=== PATIENT | male | born 1995 | race Caucasian/White ===

== ENCOUNTER 2018-09-02 13:06 | Day surgery (SDC) | payer OTHER ==
[2018-09-02 13:27] LABS: BILIRUBIN,URINE NEGATIVE (NEGATIVE); GLUCOSE, URINE (UA) NEGATIVE (NEGATIVE); KETONES,URINE (UA) NEGATIVE (NEGATIVE); LEUKOCYTE ESTERASE, URINE NEGATIVE (NEGATIVE); NITRITE,URINE NEGATIVE (NEGATIVE); OCCULT BLOOD,URINE NEGATIVE (NEGATIVE); PH,URINE 6.5 PH (5.0-7.5); PROTEIN,URINE NEGATIVE (NEGATIVE); UROBILINOGEN,URINE 0.2 (NORMAL) E.U./dL (NORMAL)
[2018-09-02 13:28] LABS: CLARITY,URINE CLEAR (CLEAR)
[2018-09-02 13:37] LABS: BASOPHILS % (AUTO) 0.6 %; EOSINOPHILS # (AUTO) 0.1 10^3/uL (0.0-0.7); HGB - HEMOGLOBIN 14.8 g/dL (14.0-18.0); LYMPHOCYTES # (AUTO) 1.8 10^3/uL (1.5-3.5); LYMPHOCYTES % (AUTO) 25.9 %; MEAN CORPUSCULAR HEMOGLOBIN 28.9 pg (27.0-31.0); MEAN CORPUSCULAR HGB CONC 34.3 g/dL (32.0-36.0); MEAN CORPUSCULAR VOLUME 84.3 fL (80.0-94.0); MEAN PLATELET VOLUME 8.6 fL (7.4-11.4); MONOCYTES # (AUTO) 0.7 10^3/uL (0.0-1.0); MONOCYTES % (AUTO) 10.8 %; NEUTROPHILS # (AUTO) 4.2 10^3/uL (1.5-6.6); NEUTROPHILS % (AUTO) 60.7 %; PLT - PLATELET COUNT 263 10^3/uL (130-450); RED BLOOD COUNT 5.14 10^6/uL (4.70-6.10); RED CELL DISTRIBUTION WIDTH 13.1 % (12.0-15.0); WHITE BLOOD COUNT 6.8 x10^3/uL (4.8-10.8)
[2018-09-02 13:49] LABS: ALBUMIN 4.4 g/dL (3.2-5.5); ALBUMIN/GLOBULIN RATIO 1.4 (1.0-2.2); BILIRUBIN,TOTAL 0.4 mg/dL (0.2-1.0); CALCIUM 8.9 mg/dL (8.5-10.3); TOTAL PROTEIN 7.6 g/dL (6.7-8.2)
--- NOTE | 2018-09-02 14:33 | ED Physician Documentation ---
PD HPI ABD PAIN - Stated complaint Stated Complaint: ABD PX/NAUSEA - Chief complaint Chief Complaint: Abd Pain - History obtained from History obtained from: Patient, Family - History of Present Illness Timing - onset: Yesterday Timing - duration: Days (2) Timing - details: Gradual onset Pain level max: 7 Pain level now: 6 Quality: Aching, Pain Location: RLQ Improved by: Laying still Worsened by: Moving, Palpation Associated symptoms: Nausea. No: Fever, Vomiting, Hematemesis, Diarrhea, Constipation, Melena, Hematochezia Similar symptoms before: Has not had sx before Recently seen: Not recently seen - Additional information Additional information: 23-year-old male started with generalized abdominal pain yesterday which is now settled in the right lower quadrant today. Worse with standing up, walking or going over bumps in the car. Patient ate cereal at 8 AM this morning. Review of Systems Ten Systems: 10 systems reviewed and negative Constitutional: denies: Fever, Chills Throat: denies: Sore throat Respiratory: denies: Cough, Wheezing : denies: Dysuria, Frequency, Hesitancy, Hematuria Skin: denies: Rash Musculoskeletal: denies: Neck pain, Back pain Neurologic: denies: Headache PD PAST MEDICAL HISTORY - Past Medical History Past Medical History: No - Past Surgical History Past Surgical History: No - Present Medications Home Medications: Ambulatory Orders Medication Instructions Recorded Confirmed No Known Home Medications 09/02/18 09/02/18 - Allergies Allergies/Adverse Reactions: Allergies Allergy/AdvReac Type Severity Reaction Status Date / Time No Known Drug Allergies Allergy Verified 09/02/18 13:12 - Social History Does the pt smoke?: No Smoking Status: Never smoker Does the pt drink ETOH?: No Does the pt have substance abuse?: No - Immunizations Immunizations are current?: Yes - POLST Patient has POLST: No PD ED PE NORMAL - Vitals Vital signs reviewed: Yes - General General: Alert and oriented X 3, No acute distress - HEENT HEENT: Moist mucous membranes - Neck Neck: Supple, no meningeal sign - Cardiac Cardiac: RRR - Respiratory Respiratory: No respiratory distress, Clear bilaterally - Abdomen Abdomen: Soft, Other (Tender palpation right lower quadrant at McBurney's point. No peritoneal signs. ) - Back Back: No CVA TTP, No spinal TTP - Derm Derm: Warm and dry - Extremities Extremities: Normal ROM s pain, No edema - Neuro Neuro: Alert and oriented X 3 - Psych Psych: Normal mood, Normal affect Results - Vitals Vitals: Vital Signs - 24 hr 09/02/18 13:08 Temperature 36.1 C L Heart Rate 64 Respiratory 16 Rate Blood Pressure 156/82 H O2 Saturation 100 Oxygen O2 Source Room air - Labs Labs: Laboratory Tests 09/02/18 09/02/18 09/02/18 13:13 13:32 13:32 WBC 6.8 RBC 5.14 Hgb 14.8 Hct 43.3 MCV 84.3 MCH 28.9 MCHC 34.3 RDW 13.1 Plt Count 263 MPV 8.6 Neut # (Auto) 4.2 Lymph # (Auto) 1.8 [place] # (Auto) 0.7 Eos # (Auto) 0.1 Baso # (Auto) 0.0 Absolute Nucleated RBC 0.00 Nucleated RBC % 0.0 Sodium 139 Potassium 3.6 Chloride 106 Carbon Dioxide 26 Anion Gap 7.0 BUN 18 Creatinine 1.0 Estimated GFR (MDRD) 91 Glucose 92 Calcium 8.9 Total Bilirubin 0.4 AST 22 ALT 26 Alkaline Phosphatase 70 Total Protein 7.6 Albumin 4.4 Globulin 3.2 Albumin/Globulin Ratio 1.4 Lipase 23 Urine Color YELLOW Urine Clarity CLEAR Urine pH 6.5 Ur Specific [place] 1.010 Urine Protein NEGATIVE Urine Glucose (UA) NEGATIVE Urine Ketones NEGATIVE Urine Occult Blood NEGATIVE Urine Nitrite NEGATIVE Urine Bilirubin NEGATIVE Urine Urobilinogen 0.2 (NORMAL) Ur Leukocyte Esterase NEGATIVE Ur Microscopic Review NOT INDICATED Urine Culture Comments NOT INDICATED PD MEDICAL DECISION MAKING - ED course Complexity details: reviewed results, re-evaluated patient, considered differential, d/w patient ED course: 23-year-old male presents to the emergency department what appears to be appendicitis clinically. Discussed the case with Dr. Levy, surgeon on- call who came and evaluated the patient will take to the operating room. This document was made in part using voice recognition software. While efforts are made to proofread this document, sound alike and grammatical errors may occur. Departure - Departure Disposition: ED Transfer to [facility] Clinical Impression: Appendicitis Qualifiers: Appendicitis type: acute appendicitis Acute appendicitis type: unspecified acute appendicitis type Qualified Code(s): K35.80 - Unspecified acute appendicitis Condition: Stable
[2018-09-02] MEDS ORDERED: BUPIVACAINE 0.5% PF 30 ML VIAL ONE (15:02)
[2018-09-02] MEDS ORDERED: cefOXitin 2 GM in SODIUM CHLORIDE 0.9% MINIBAG 100 ML IV STA (15:08)
--- NOTE | 2018-09-02 15:26 | ANESTHESIA ---
Pre-Anesthesia VS, & Labs - Diagnosis acute appendicitis - Procedure Laprascopic appendectomy Vital Signs: Temp Pulse Resp BP Pulse Ox 36.1 C L 64 16 156/82 H 100 09/02/18 13:08 09/02/18 13:08 09/02/18 13:08 09/02/18 13:08 09/02/18 13:08 Height 5 ft 11 in Weight (kg) 99.79 kg Body Mass Index 30.7 - NPO Last Fluid Intake: 1200 Last Food Intake: 829 - Lab Results Current Lab Results: Laboratory Tests 09/02/18 13:32: Sodium 139, Potassium 3.6, Chloride 106, Carbon Dioxide 26, Anion Gap 7.0, BUN 18, Creatinine 1.0, Estimated GFR (MDRD) 91, Glucose 92, Calcium 8.9, Total Bilirubin 0.4, AST 22, ALT 26, Alkaline Phosphatase 70, Total Protein 7.6, Albumin 4.4, Globulin 3.2, Albumin/Globulin Ratio 1.4, Lipase 23 09/02/18 13:32: WBC 6.8, RBC 5.14, Hgb 14.8, Hct 43.3, MCV 84.3, MCH 28.9, MCHC 34.3, RDW 13.1, Plt Count 263, MPV 8.6, Neut # (Auto) 4.2, Lymph # (Auto) 1.8, [place] # (Auto) 0.7, Eos # (Auto) 0.1, Baso # (Auto) 0.0, Absolute Nucleated RBC 0.00, Nucleated RBC % 0.0 Fish Bones: 09/02/18 13:32 09/02/18 13:32 Home Medications and Allergies Home Medications: Ambulatory Orders Ibuprofen 200 mg PO Q8HR PRN 09/02/18 Active Medications Cefoxitin Sodium 2 gm/ Sodium (Chloride) 100 mls @ 100 mls/hr IV ONCE STA Stop: 09/02/18 16:07 Last Admin: 09/02/18 15:15 Dose: Not Given Ibuprofen 200 mg PO Q8HR PRN 09/02/18 Allergies/Adverse Reactions: Allergies Allergy/AdvReac Type Severity Reaction Status Date / Time No Known Drug Allergies Allergy Verified 09/02/18 13:12 Anes History & Medical History - Anesthetic History Family history of Anesthesia Complications: Denies Family history of Malignant Hyperthermia: Denies - Medical History Cardiovascular: reports: None Pulmonary: reports: None Gastrointestinal: reports: GERD (occassionally) Urinary: reports: None Neuro: reports: None Musculoskeletal: reports: None Endocrine/Autoimmune: reports: None Blood Disorders: reports: None Skin: reports: None Smoking Status: Never smoker Exam General: Alert, Oriented x3, Cooperative, No acute distress Mouth Openin Fingerbreadth Neck Mobility: Normal Mallampati classification: II Thyromental Distance: 4-6 cm Respiratory: Lungs clear, Normal breath sounds, No respiratory distress, No accessory muscle use Cardiovascular: Regular rate, Normal S1, Normal S2, No murmurs Mental/Cognitive Status: Alert/Oriented X3, Normal for patient Plan Anesthesia Type: General Consent for Procedure(s) Verified and Reviewed: Yes Code Status: Attempt Resuscitation ASA classification: 2-Mild systemic disease Is this case an emergency?: Yes
[2018-09-02] MEDS ORDERED: IOVERSOL 320 100 ML VIAL IVP ONE (15:27)
[2018-09-02] MEDS ORDERED: BUPIVACAINE 0.5% PF 30 ML VIAL INFIL ONE ×2 (15:57)
[2018-09-02] MEDS ORDERED: LACTATED RINGERS 1,000 ML IV ONE ×2 (15:58→16:20)
[2018-09-02] MEDS ORDERED: HYDROcod/ACETAM 5/325 MG TABLET PO PRN (16:42)
[2018-09-02] MEDS ORDERED: NEOSTIGMINE 1 MG/1 ML 10 ML MDV IVP ONE (16:44)
[2018-09-02] MEDS ORDERED: ROCURONIUM 50 MG/5 ML VIAL IVP ONE (16:44)
[2018-09-02] MEDS ORDERED: GLYCOPYRROLATE 1 MG/5 ML VIAL IVP ONE (16:44)
[2018-09-02] MEDS ORDERED: KETOROLAC 30 MG/ML VIAL IVP ONE (16:44)
[2018-09-02] MEDS ORDERED: MIDAZOLAM 2 MG/2 ML VIAL IVP ONE (16:44)
[2018-09-02] MEDS ORDERED: PROPOFOL 200 MG/20 ML VIAL IVP ONE (16:44)
[2018-09-02] MEDS ORDERED: ONDANSETRON 4 MG/2 ML VIAL IVP ONE (16:44)
[2018-09-02] MEDS ORDERED: HYDROmorphone 1 MG/ML CARPUJECT IVP ONE (16:44)
[2018-09-02] MEDS ORDERED: fentaNYL 100 MCG/2 ML VIAL IVP ONE (16:44)
--- NOTE | 2018-09-02 16:44 | IMMEDIATE POSTOPERATIVE NOTE ---
Immediate Postoperative Note - Procedure Note Procedure Date: 09/02/18 Pre-Op Diagnosis: appendicitis Procedure: lap appy Post-Op Diagnosis: same Primary Surgeon: zakiya Anesthesia Type: General ET tube Complications: No complications Estimated Blood Loss (in cc): 10 Specimens and Cultures: appendix Plan of Care: d/c
[2018-09-02] MEDS: HYDROmorphone 0.5 MG/0.5 ML SYRINGE ONE ×2 (16:57→17:19)
[2018-09-02] MEDS ORDERED: HYDROmorphone 0.5 MG/0.5 ML SYRINGE ONE (17:22)
[2018-09-02] MEDS ORDERED: HYDROcod/ACETAM 5/325 MG TABLET ONE (17:22)
[2018-09-02 17:59] VITALS: BP 139/54
--- NOTE | 2018-09-03 01:21 | OPERATIVE REPORT ---
DATE OF SERVICE: 09/02/2018 Physician: Edwar Levy MD PREOPERATIVE DIAGNOSIS: Acute appendicitis. POSTOPERATIVE DIAGNOSIS: Acute appendicitis. PROCEDURE PERFORMED: Laparoscopic appendectomy. INDICATIONS FOR PROCEDURE: The patient is a 23-year-old man who presented to the ER complaining of one day of generalized to right lower quadrant pain and nausea. Due to the classic nature of his symptoms, we elected to bypass the CT scan and go straight to the operating room. The patient was in agreement with this plan. PROCEDURE IN DETAIL: The risks and benefits were explained to the patient and he agreed to the procedure. He was taken to the operating room and placed under general anesthesia and intubated and was prepped and draped. A timeout was performed. Everyone in the room agreed to the procedure. We began by making a 12 mm supraumbilical incision and carried this down into the peritoneal cavity, inserted a Dominga trocar and secured it in place. We then insufflated the abdomen to 15 mmHg. On general inspection of the abdomen, we noted slight ileus of the bowel around the appendix. The appendix had a very mild inflammation in its proximal half. The cecum and ascending colon had numerous adhesions to the anterior abdominal wall. They looked to be old and chronic in nature, possibly congenital. In any event, the appendix was not involved with these adhesions. We elected to leave them alone. We then inserted two more 5 mm trocars, one above the pubic symphysis and one in the left lower quadrant under direct vision from the camera. We then created a window between the appendiceal body and the mesoappendix at the base of the appendix. Using the blue load of the GI stapler, we transected the appendix at its base; and then using the white load, we transected the mesoappendix. The appendix was then placed in an EndoCatch bag and sent to pathology. The right lower quadrant was lavaged and suctioned dry. The staple lines were inspected and found to have no residual bleeding. All three ports were removed under vision from the camera. The fascia of the umbilical port site was closed using 0 Vicryl stitch. The skin over all three incisions was closed using 4-0 Monocryl and Dermabond. This terminated the procedure. The patient tolerated it well. He was extubated in the operating room and taken to recovery in stable condition; 10 mL of Marcaine was infused in the incisions prior to closure. ESTIMATED BLOOD LOSS: 10 mL. SPECIMEN: Appendix. COMPLICATIONS: None. PLAN: The plan is for this patient to go home later today. TD: 09/02/2018 16:47 MTDD
== END 2018-09-02 15:01 | disposition home or self-care (01) ==
LOC: ED 13:06 → SDS 15:00
PROVIDERS: ATTEND Surgery
PROC: 0DTJ4ZZ Resection of Appendix, Percutaneous Endoscopic Approach (ICD-10-PCS; principal; 2018-09-02 15:30)
DX: K35.80 Unspecified acute appendicitis (principal)
CPT/HCPCS: 36415; 44970; 80053; 81003; 83690; 85025; 99283; 99285; A9270; J1170; J7120; 81001; 87086

== ENCOUNTER 2022-05-25 12:45 | Outpatient (CLI) | payer OTHER ==
--- NOTE | 2022-05-25 15:06 | MRI Report ---
PROCEDURE: Shoulder RT W/O INDICATIONS: TECHNIQUE: Noncontrast oblique coronal T2 fast spin echo with fat saturation, oblique sagittal T1 spin echo and T2 fast spin echo with fat saturation, axial T1 spin echo and T2 fast spin echo with fat saturation t hrough the shoulder. COMPARISON: Bilateral shoulder radiographs 04/16/2022. FINDINGS: Image quality: Excellent. Rotator cuff: There is mild to moderate supraspinatus tendinosis and infraspinatus tendinosis. The t eres minor tendon is intact. There is moderate tendinosis and focal moderate grade partial intrasubst ance tearing of the subscapularis tendon at the superior insertion. No significant rotator cuff muscl e atrophy. Bones and bursae: No acute trabecular bone injury or fracture. Chronic traction cystic changes are s een at the posterosuperior humeral head near the rotator cuff tendon insertions. Glenohumeral articul ar cartilages are grossly maintained. Mild degenerative changes of the acromioclavicular joint. No si gnificant subacromial/subdeltoid bursal fluid. No significant glenohumeral joint effusion. Capsule and soft tissues: No displaced labral tear. The proximal biceps long head tendon is grossly intact. There is partial effacement of the normal fat signal in the rotator interval. The middle caryl ohumeral ligament and anterior band of the inferior glenohumeral ligament appear thickened. IMPRESSION: 1.Focal moderate grade partial intrasubstance tearing of the subscapularis tendon at the superior ins ertion superimposed on chronic tendinosis. 2.Mild to moderate supraspinatus and infraspinatus tendinosis. 3.Mild degenerative changes at the acromioclavicular joint. 4.Partial effacement of the rotator interval fat and mild thickening of the inferior glenohumeral lig ament are nonspecific, but can be seen in the setting of the clinical syndrome of adhesive capsulitis . Reviewed by: Ozzy Koch MD on 05/25/2022 3:05 PM PDT Approved by: Ozzy Koch MD on 05/25/2022 3:05 PM PDT Station ID: [id number]
--- NOTE | 2022-05-25 15:07 | MRI Report ---
PROCEDURE: Shoulder LT W/O INDICATIONS: BILATERAL SHOULDER PAIN TECHNIQUE: Noncontrast oblique coronal T2 fast spin echo with fat saturation, oblique sagittal T1 spin echo and T2 fast spin echo with fat saturation, axial T1 spin echo and T2 fast spin echo with fat saturation a nd 3-D gradient echo through the shoulder. COMPARISON: Bilateral shoulder radiographs 04/16/2022 FINDINGS: Image quality: Excellent. Rotator cuff: Mild supraspinatus tendinosis with low-grade bursal surface fraying. The infraspinatus and teres minor tendons are intact. The subscapularis tendon demonstrates tendinosis and low-grade i ntrasubstance tearing at the superior insertion. There is no significant rotator cuff muscle atrophy. Bones and bursae: No acute trabecular bone injury or fracture. Chronic traction cystic changes are se en in the posterosuperior humeral head. No glenohumeral cartilage defect identified. Mild acromioclav icular osteoarthrosis with mild subchondral cystic changes. No significant subacromial/subdeltoid bur jesus fluid. No significant glenohumeral joint effusion. Capsule and soft tissues: No displaced labral tear. The proximal biceps long head tendon demonstrate mild tendinosis. There is partial effacement of the normal fat signal in the rotator normal. The ant erior band of the inferior glenohumeral ligament and the middle glenohumeral ligament appear mildly t hickened. IMPRESSION: 1.Mild to moderate subscapularis tendinosis with superimposed low-grade intrasubstance tearing at the superior insertion. 2.Mild tendinosis of the supraspinatus tendon with low-grade bursal surface fraying without a discret e tear. 3.Mild tendinosis of the proximal biceps long head tendon. 4.Mild acromioclavicular osteoarthrosis. 5.Partial effacement of the rotator interval fat and mild thickening of the middle and inferior gleno humeral ligaments are nonspecific, but can be seen in the setting of the clinical syndrome of adhesiv e capsulitis. Reviewed by: Ozzy Koch MD on 05/25/2022 3:05 PM PDT Approved by: Ozzy Koch MD on 05/25/2022 3:05 PM PDT Station ID: [id number]
== END 2022-05-25 12:46 | disposition home or self-care (01) ==
LOC: DI 12:45
PROVIDERS: ATTEND Registered Nurse
DX: M75.111 Incomplete rotator cuff tear or rupture of right shoulder, not specified as traumatic (principal); M19.011 Primary osteoarthritis, right shoulder; M75.112 Incomplete rotator cuff tear or rupture of left shoulder, not specified as traumatic; M19.012 Primary osteoarthritis, left shoulder; M75.82 Other shoulder lesions, left shoulder

== ENCOUNTER 2022-06-16 08:00 | Outpatient (CLI) | payer OTHER ==
--- NOTE | 2022-06-16 17:20 | XRAY Report ---
PROCEDURE: Shoulder 2 View BILAT INDICATIONS: BILAT SHOULDER PX, Y AXIAL VIEW TECHNIQUE: 2 views of each shoulder were acquired. COMPARISON: None. FINDINGS: Bones: No visible fractures or dislocations. No suspicious bony lesions. Visualized ribs appear in tact. Soft tissues: No suspicious soft tissue calcifications. IMPRESSION: Normal axillary and Y views of each shoulder. Reviewed by: Antonette Hummel MD on 06/16/2022 5:18 PM PDT Approved by: Antonette Hummel MD on 06/16/2022 5:18 PM PDT Station ID: [id number]
== END 2022-06-16 23:59 | disposition home or self-care (01) ==
LOC: DI.WOS 08:00
PROVIDERS: ATTEND Physician Assistant Surgical
DX: M25.511 Pain in right shoulder (principal); M25.512 Pain in left shoulder

== ENCOUNTER 2023-02-17 07:33 | Outpatient (CLI) | payer OTHER ==
[2023-02-17 12:12] LABS: BASOPHILS # (AUTO) 0.1 10^3/uL (0.0-0.1); BASOPHILS % (AUTO) 1.2 %; EOSINOPHILS # (AUTO) 0.4 10^3/uL (0.0-0.7); EOSINOPHILS % (AUTO) 7.2 %; HGB - HEMOGLOBIN 14.8 g/dL (14.0-18.0); LYMPHOCYTES # (AUTO) 1.9 10^3/uL (1.5-3.5); LYMPHOCYTES % (AUTO) 32.6 %; MEAN CORPUSCULAR HEMOGLOBIN 27.8 pg (27.0-31.0); MEAN CORPUSCULAR HGB CONC 32.9 g/dL (32.0-36.0); MEAN CORPUSCULAR VOLUME 84.6 fL (80.0-94.0); MEAN PLATELET VOLUME 13.5 fL (7.4-11.4); MONOCYTES # (AUTO) 0.5 10^3/uL (0.0-1.0); MONOCYTES % (AUTO) 9.5 %; NEUTROPHILS # (AUTO) 2.8 10^3/uL (1.5-6.6); NEUTROPHILS % (AUTO) 49.3 %; PLT - PLATELET COUNT 305 10^3/uL (130-450); RED BLOOD COUNT 5.32 10^6/uL (4.70-6.10); RED CELL DISTRIBUTION WIDTH 12.3 % (12.0-15.0); WHITE BLOOD COUNT 5.7 x10^3/uL (4.8-10.8)
[2023-02-17 12:22] LABS: BILIRUBIN,URINE NEGATIVE (NEGATIVE); GLUCOSE, URINE (UA) NEGATIVE (NEGATIVE); KETONES,URINE (UA) NEGATIVE (NEGATIVE); LEUKOCYTE ESTERASE, URINE NEGATIVE (NEGATIVE); NITRITE,URINE NEGATIVE (NEGATIVE); OCCULT BLOOD,URINE NEGATIVE (NEGATIVE); PH,URINE 6.5 PH (5.0-7.5); PROTEIN,URINE NEGATIVE (NEGATIVE); UROBILINOGEN,URINE 0.2 (NORMAL) E.U./dL (NORMAL)
[2023-02-17 12:31] LABS: BACTERIA,URINE None Seen /HPF (None Seen); CLARITY,URINE CLEAR (CLEAR); RBC,URINE 0-5 /HPF (0-5); SQUAMOUS EPITHELIAL CELL,UR RARE Squamous (<= Few); WBC,URINE 0-3 /HPF (0-3)
[2023-02-17 12:49] LABS: ALBUMIN/GLOBULIN RATIO 1.3 (1.0-2.2); ALKALINE PHOSPHATASE 58 IU/L (42-121); ALT ALANINE AMINOTRANSFERASE 27 IU/L (10-60); AST ASPARTATE AMINOTRANSFERASE 17 IU/L (10-42); BILIRUBIN,TOTAL 0.6 mg/dL (0.2-1.0); BUN - BLOOD UREA NITROGEN 18 mg/dL (6-20); CALCIUM 8.9 mg/dL (8.5-10.3); CARBON DIOXIDE - CO2 29 mmol/L (21-32); CHLORIDE 109 mmol/L (101-111); CHOL/HDL RATIO 3.5 (<5.0); CHOLESTEROL 147 mg/dL; CREATININE 1.2 mg/dL (0.6-1.2); GFR - MDRD 72 (>89); GLUCOSE 95 mg/dL (70-100); HDL CHOLESTEROL 42 mg/dL; LDL CHOLESTEROL,CALCULATED 92 mg/dL; LDL/HDL RATIO 2.2 (<3.6); POTASSIUM 4.4 mmol/L (3.5-5.0); SODIUM 142 mmol/L (135-145); THYROID STIMULATING HORMONE 1.32 uIU/mL (0.34-5.60); TRIGLYCERIDES 64 mg/dL; VLDL CHOLESTEROL 13 mg/dL
== END 2023-02-17 07:34 | disposition home or self-care (01) ==
LOC: LAB.N 07:33
PROVIDERS: ATTEND Physician Assistant
DX: R35.0 Frequency of micturition (principal); Z13.9 Encounter for screening, unspecified
CPT/HCPCS: 36415; 80053; 80061; 81001; 83721; 84153; 84443; 85025; 87086

== ENCOUNTER 2024-01-06 18:13 | Emergency (ER) | payer OTHER ==
[2024-01-06 18:33] VITALS: O2SAT 97
[2024-01-06] MEDS: BACITRACIN ZINC OINT 1 PACKET TOP STA (18:55)
--- NOTE | 2024-01-06 19:05 | ED Physician Documentation ---
History of Present Illness - Stated complaint Stated Complaint: FALL - Chief complaint Chief Complaint: Trauma Ext - History obtained from History obtained from: Patient - History of Present Illness Timing: Today Pain level max: 5 Pain level now: 4 - Additonal information Additional information: 28-year-old male, works as a real estate job titles, today he fell scraping his bilateral knees and left forearm. Complains of left forearm pain. Worse with movement, better with rest. Patient is left-handed. No head injury, no neck or back pain. No chest pain. No abdominal pain. Not on blood thinners. Tetanus is up-to-date. No other injuries. PD PAST MEDICAL HISTORY - Past Medical History Past Medical History: No Cardiovascular: None Respiratory: None Neuro: None Endocrine/Autoimmune: None GI: GERD : None Psych: None Musculoskeletal: None Derm: None - Past Surgical History Past Surgical History: Yes General: Appendectomy - Present Medications Home Medications: Ambulatory Orders Medication Instructions Recorded Confirmed No Known Home Medications 01/06/24 01/06/24 - Allergies Allergies/Adverse Reactions: Allergies Allergy/AdvReac Type Severity Reaction Status Date / Time No Known Drug Allergies Allergy Verified 01/06/24 18:27 - Social History Does the pt smoke?: No Smoking Status: Never smoker Does the pt drink ETOH?: No Does the pt have substance abuse?: No - Immunizations Immunizations are current?: Yes - POLST Patient has POLST: No PD ED PE NORMAL - Vitals Vital signs reviewed: Yes - General General: Alert and oriented X 3, No acute distress - HEENT HEENT: Moist mucous membranes - Neck Neck: Supple, no meningeal sign - Cardiac Cardiac: RRR, Strong equal pulses - Respiratory Respiratory: No respiratory distress, Clear bilaterally - Abdomen Abdomen: Soft, Non tender, Non distended - Derm Derm: Warm and dry - Extremities Extremities: Other (abrasions to the B knees and L forearm/elbow. TTP along the L forearm. FROM of all major joints without pain. 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 Abrasions were cleansed and bandaged. Warnings of infection and instructions on wound care given at bedside. Patient counseled regarding signs and symptoms for which I believe and urgent re-evaluation would be necessary. Patient with good understanding of and agreement to plan and is comfortable going home at this time This document was made in part using voice recognition software. While efforts are made to proofread this document, sound alike and grammatical errors may occur. L&[id number] Departure - Departure Disposition: 01 Home, Self Care Clinical Impression: Abrasions of multiple sites Forearm contusion Qualifiers: Encounter type: initial encounter Laterality: left Qualified Code(s): S50.12XA - Contusion of left forearm, initial encounter Condition: Good Instructions: ED Abrasion, ED Contusion Upper Ext Follow-Up: your,doctor as needed [Other] Comments: Keep your wounds clean. Return for redness, swelling or drainage from the wound. Your x-ray does not show any acute abnormalities today. You can use Motrin or Tylenol as needed for pain. Please return if you worsen. Forms: PCP List Discharge Date/Time: 01/06/24 19:21
[2024-01-06 19:30] VITALS: BP 135/93
--- NOTE | 2024-01-07 00:29 | XRAY Report ---
PROCEDURE: Forearm LT INDICATIONS: fall, arm pain TECHNIQUE: 2 views of the forearm were acquired. COMPARISON: None. FINDINGS: Bones: No fractures or dislocations. No suspicious bony lesions. Soft tissues: No suspicious soft tissue calcifications or masses. IMPRESSION: No visualized acute fracture or dislocation. However, occult injury cannot be excluded. Recommend west rt interval imaging follow-up in 7-10 days as clinically indicated for additional evaluation. The above findings are concordant with preliminary report. Reviewed by: Marcy Rehman MD on 01/07/2024 12:27 AM PDT Approved by: Marcy Rehman MD on 01/07/2024 12:27 AM PDT Station ID: [id number]
== END 2024-01-06 19:21 | disposition home or self-care (01) ==
LOC: ED 18:13
DX: S50.12XA Contusion of left forearm, initial encounter (principal); S80.212A Abrasion, left knee, initial encounter; S80.211A Abrasion, right knee, initial encounter; S50.312A Abrasion of left elbow, initial encounter; W18.39XA Other fall on same level, initial encounter
CPT/HCPCS: 1040M; 73090; 99283; A9270